=== PATIENT | female | born 1985 | race Hispanic/Latino ===

== ENCOUNTER 2017-04-12 02:27 | Emergency (ER) | payer SELFPAY ==
[2017-04-12] MEDS ORDERED: Lorazepam 2 MG/ML VIAL ONE (02:45)
[2017-04-12 02:59] LABS: #Basophils 0.1 thou/uL (0.0-0.2); #Eosinphils 0.1 thou/uL (0.0-0.7); #Lymphocytes 2.6 thou/uL (1.20-3.40); #Monocytes 0.5 thou/uL (0.11-0.59); #Neutrophils 3.4 thou/uL (1.40-6.50); %Basophils 1.2 % (0.0-1.0); %Eosinophils 1.4 % (0.0-10.0); %Lymphocytes 39.4 % (21.0-51.0); %Monocytes 6.8 % (0.0-10.0); Hematocrit 35.9 % (36.0-47.0); Mean Platelet Volume 6.6 fL (7.4-10.4); Red Blood Cell (RBC) Count 3.97 mill/uL (4.20-5.40); White Blood Cell (WBC) Count 6.7 thou/uL (4.8-10.8)
[2017-04-12 03:20] LABS: ALT (SGPT) 18 U/L (8-55); AST (SGOT) 28 U/L (5-34); Alkaline Phosphatase 76 U/L (40-150); Anion Gap 13 mmol/L (10-20); BUN (Urea Nitrogen) 16 mg/dL (7.0-18.7); Bilirubin, Total 0.4 mg/dL (0.2-1.2); Calc. Creatinine Clearance 0 mL/min (70-130); Calcium 9.2 mg/dL (7.8-10.44); Carbon Dioxide 19 mmol/L (22-29); Chloride 109 mmol/L (98-107); Estimated GFR-MDRD Greater than 90; Globulin 2.8 g/dL (2.4-3.5); Lipase 27 U/L (8-78); Protein, Total 6.7 g/dL (6.0-8.3)
== END 2017-04-12 04:54 | disposition home or self-care (01) ==
LOC: ERS 02:27
DX: R10.9 Unspecified abdominal pain (principal); R06.4 Hyperventilation
CPT/HCPCS: 36415; 80053; 83690; 84703; 85025; 99284; J2060

== ENCOUNTER 2017-07-17 01:21 | Emergency (ER) | payer SELFPAY ==
[2017-07-17] MEDS ORDERED: Lorazepam 2 MG/ML VIAL ONE (01:43)
[2017-07-17] MEDS ORDERED: Magnesium Citrate 300 ML BOT ONE (02:28)
== END 2017-07-17 03:55 | disposition home or self-care (01) ==
LOC: ERS 01:21
DX: K59.00 Constipation, unspecified (principal); F41.9 Anxiety disorder, unspecified
CPT/HCPCS: 96372; J2060

== ENCOUNTER 2018-01-11 06:48 | Emergency (ER) | payer SELFPAY ==
[2018-01-11] MEDS ORDERED: Dicyclomine 20 MG TAB ONE (07:34)
[2018-01-11] MEDS ORDERED: Ondansetron ODT 4 MG TAB ONE (07:34)
[2018-01-11 07:55] LABS: #Basophils 0.1 thou/uL (0.0-0.2); #Eosinphils 0.1 thou/uL (0.0-0.7); #Lymphocytes 1.8 thou/uL (1.20-3.40); #Monocytes 0.5 thou/uL (0.11-0.59); #Neutrophils 3.9 thou/uL (1.40-6.50); %Basophils 0.8 % (0.0-1.0); %Eosinophils 2.1 % (0.0-10.0); %Lymphocytes 28.7 % (21.0-51.0); %Neutrophils 61.5 % (42.0-75.0); Hemoglobin 12.4 g/dL (12.0-16.0); Mean Corpuscular HGB CONC 32.1 g/dL (32.0-36.0); Mean Corpuscular Hemoglobin 28.9 pg (27.0-31.0); Mean Platelet Volume 7.1 fL (7.4-10.4); Platelet Count 273 thou/uL (130-400); RBC Distribution Width 12.2 % (11.5-14.5); Red Blood Cell (RBC) Count 4.29 mill/uL (4.20-5.40); White Blood Cell (WBC) Count 6.4 thou/uL (4.8-10.8)
[2018-01-11 07:57] LABS: Bilirubin Negative (Negative); Blood, Urine Negative (Negative); Clarity CLOUDY (Clear); Glucose, Urine (Dipstick) Negative (Negative); Leukocyte Trace (Negative); Nitrite Negative (Negative); Protein, Urine (Dipstick) Trace mg/dL (Neg-Trace)
[2018-01-11 07:59] LABS: Bacteria/HPF 3+ HPF (None Seen); Pathc Cast-AUWi Flag 0.87 (0-2.49)
[2018-01-11 08:13] LABS: ALT (SGPT) 24 U/L (8-55); AST (SGOT) 47 U/L (5-34); Albumin 4.1 g/dL (3.5-5.0); Alkaline Phosphatase 77 U/L (40-150); Anion Gap 9 mmol/L (10-20); BUN (Urea Nitrogen) 12 mg/dL (7.0-18.7); Bilirubin, Total 0.5 mg/dL (0.2-1.2); Calc. Creatinine Clearance 0 mL/min (70-130); Calcium 8.8 mg/dL (7.8-10.44); Carbon Dioxide 27 mmol/L (22-29); Chloride 103 mmol/L (98-107); Estimated GFR-MDRD Greater than 90; Globulin 2.8 g/dL (2.4-3.5); Lipase 20 U/L (8-78); Potassium 3.4 mmol/L (3.5-5.1); Protein, Total 6.9 g/dL (6.0-8.3); Sodium 136 mmol/L (136-145)
[2018-01-11 08:23] LABS: Glucose 54 mg/dL (70-105)
[2018-01-11 08:38] LABS: Hyaline Casts/LPF 0-3 HYALINE CAST LPF (0-3 Hyaline); RBC/HPF 0-3 HPF (0-3)
[2018-01-11 08:39] LABS: Renal Epithelial 0-3 HPF (0-3); Transitional Epithelial 0-3 HPF (0-3)
[2018-01-11 09:22] LABS: BHCG - Serum Negative (NEGATIVE); Pregs Control Background? CLEAR/WHITE (CLR/WHITE); Pregs Control Bar Appear? YES (CONTROL BAR)
[2018-01-11] MEDS ORDERED: ISOVUE-370 76%-LOCM 1 ML ONE (09:57)
[2018-01-11] MEDS ORDERED: Iopamidol 370 76% 50 ML VIAL FS ONE (09:57)
--- NOTE | 2018-01-11 10:02 | CT ---
CT ABDOMEN AND PELVIS WITHOUT IV CONTRAST: HISTORY: Abdominal pain, constipation. FINDINGS: The lung bases are clear. The liver, spleen, adrenal glands, and kidneys are normal. No calcified ga llstones are seen. No free air or lymphadenopathy is seen. The small bowel loops are not abnormally dilated. A normal-appearing appendix is seen with intraluminal air and no abnormal dilatation or wa ll enhancement. There is a small amount of free fluid in the right pelvis inferior to the appendix a nd the cecum, likely from ovarian origin. There are changes of IUD in the uterus. IMPRESSION: No CT evidence of acute appendicitis. This exam was interpreted in consultation with Dr. Renzo Perry who concurs.
[2018-01-11] MEDS ORDERED: Ketorolac Tromethamine 30 MG/ML VIAL ONE (10:25)
--- NOTE | 2018-01-11 11:28 | ULT ---
PELVIC ULTRASOUND: DATE: 01/11/18. HISTORY: Abdominal pain. The patient reports dysuria and strong-smelling urine. COMPARISON: None available. FINDINGS: Multiple transabdominal sonographic images of the pelvis are obtained. Uterus measures 10 cm x 3.7 c m x 4.3 cm. There is a linear echogenic structure seen within the endometrial canal with a suggestio n of posterior shadowing. The patient is noted to have intrauterine contraceptive device in place on CT examination also performed on today's date. The endometrial stripe measures 0.4 cm in thickness. No fluid or fluid collection is seen in the endometrial canal. The ovaries demonstrate a normal sonographic appearance bilaterally on transabdominal imaging with th e right ovary measuring 3.5 cm x 1.8 cm x 1.5 cm and the left ovary measuring 2.8 cm x 1.4 cm x 1.4 c m. Doppler evaluation of each ovary with spectral analysis and color flow evaluation demonstrates arteri al flow in each ovary. No free fluid is seen in the cul-de-sac. IMPRESSION: 1. Intrauterine contraceptive device in place. 2. Normal-appearing bilateral ovaries with arterial flow documented in each ovary. POS: [facility]
== END 2018-01-11 12:15 | disposition home or self-care (01) ==
LOC: ERS 06:48
DX: R10.31 Right lower quadrant pain (principal)
CPT/HCPCS: 36416; 74177; 76856; 80053; 81003; 81015; 83690; 84703; 85025; 87077; 87086; 87186; 87480; 87510; 87660; 93976; 96374; J1885; Q0162

== ENCOUNTER 2021-03-21 14:12 | Emergency (ER) | payer OTHER, SELFPAY ==
[2021-03-21] MEDS ORDERED: Lidocaine 1% (PF) 30 ML VIAL ONE (14:28)
== END 2021-03-21 15:12 | disposition home or self-care (01) ==
LOC: ERS 14:12
DX: S61.217A Laceration without foreign body of left little finger without damage to nail, initial encounter (principal); Y04.8XXA Assault by other bodily force, initial encounter; Y92.89 Other specified places as the place of occurrence of the external cause; Y99.0 Civilian activity done for income or pay
CPT/HCPCS: 12001; J2001

== ENCOUNTER 2021-04-04 11:28 | Emergency (ER) | payer SELFPAY | END 2021-04-04 11:55 | disposition home or self-care (01) | LOC: ERS 11:28 | DX: S61.217D Laceration without foreign body of left little finger without damage to nail, subsequent encounter (principal); R56.9 Unspecified convulsions | CPT/HCPCS: 99281 ==